=== PATIENT | male | born 1995 | race Caucasian/White ===

== ENCOUNTER 2019-10-16 21:32 | Emergency (ER) | payer BC ==
[2019-10-16 21:59] VITALS: BP 138/100; PULSE 80; TEMP 98.7; BMI 24.4
[2019-10-16] MEDS ORDERED: METOCLOPRAMIDE HCL INJECTION 10 MG/2 ML VIAL IVPB ONE (22:14)
[2019-10-16] MEDS ORDERED: METOCLOPRAMIDE HCL INJECTION 10 MG/2 ML VIAL ONE (22:22)
--- NOTE | 2019-10-17 00:32 | PDOC ---
Documentation entered by Jo Olvera SCRIBE, acting as scribe for Karon Mcgowan MD. Karon Mcgowan MD: This documentation has been prepared by the Willa brandon Nirvannie, SCRIBE, under my direction and personally reviewed by me in its entirety. I confirm that the documentation accurately reflects all work, treatment, procedures, and medical decision making performed by me. History of Present Illness - General Chief Complaint: Migraine Headache Stated Complaint: MIGRAINE Time Seen by Provider: 10/16/19 21:34 History Source: Patient Exam Limitations: No Limitations - History of Present Illness Initial Comments: 10/16/19 22:25 The patient is a 23 year old male with a significant past medical history of migraines who presents to the ED with 2 days of a constant, pressure-like headache worsened with movement of the head. As per patient, his headache is localized to the middle of the head and occipital region. He notes taking Panadol and Rizatriptan, without relief. Mother at bedside, notes buying a new blood pressure cuff and testing his pressure at which time they observed a reading of 157/106mmHg, prompting his arrival to the ED. As per patient's mother, he normally has a migraine trigger of sinusitis but, he denies any current nasal congestion. He denies any nausea, vomiting, photophobia, or neck pain. Allergies: NKDA Past History - Medical History Allergies/Adverse Reactions: Allergies Allergy/AdvReac Type Severity Reaction Status Date / Time No Known Allergies Allergy Verified 01/09/16 23:58 Home Medications: Ambulatory Orders No Home Medications 0 dose .ROUTE UTDICT 07/28/12 Cyclobenzaprine HCl [Flexeril -] 10 mg PO TID #21 tablet 01/10/16 Ibuprofen [Motrin -] 600 mg PO QID #28 tablet 01/10/16 Anemia: No Asthma: No Cancer: No Cardiac Disorders: No CVA: No COPD: No CHF: No DVT: No Dementia: No Diabetes: No Dialysis: No GI Disorders: No Disorders: No HTN: No Hypercholesterolemia: No Kidney Stones: No Liver Disease: No Psychiatric Problems: No Seizures: No Thyroid Disease: No Lung CA: No - Immunization History Immunization Up to Date: Yes - Psycho-Social/Smoking History Smoking Status: No Smoking History: Never smoked Have you smoked in the past 12 months: No Number of Cigarettes Smoked Daily: 0 Information on smoking cessation initiated: No - Substance Abuse Hx (Audit-C & DAST Scrn) How often the patient has a drink containing alcohol: Never Score: In Men: 4 or > Positive; In Women: 3 or > Positive: 0 Screen Result (Pos requires Nsg. Audit-10AR): Negative In the last yr the pt used illegal drug/Rx for NonMed reason: No Score: Yes response is considered Positive: 0 Screen Result (Positive result requires Nsg. DAST-10): Negative Review of Systems - Review of Systems Able to Perform ROS?: Yes Comments:: 10/16/19 22:26 CONSTITUTIONAL: Absent: fever, no chills, no fatigue EYES: Absent: visual changes ENT: Absent: ear pain, no sore throat CARDIOVASCULAR: Absent: chest pain, no palpitations RESPIRATORY: Absent: cough, no SOB GI: Absent: abdominal pain, no nausea, no vomiting, no constipation, no diarrhea GENITOURINARY: Absent: dysuria, no frequency, no hematuria MUSKULOSKELETAL: Absent: back pain, no arthralgia, no myalgia SKIN: Absent: rash NEURO: Present: headache All Other Systems: Reviewed and Negative *Physical Exam - Vital Signs Last Vital Signs Temp Pulse Resp BP Pulse Ox 98.7 F 80 18 138/100 100 10/16/19 21:55 10/16/19 21:55 10/16/19 21:55 10/16/19 21:55 10/16/19 21:55 - Physical Exam 10/16/19 22:33 GENERAL: The patient is awake, alert, and fully oriented, in no acute distress. HEAD:Normal with no signs of trauma. EYES: Pupils 3mm equal, round and reactive to light, extraocular movements intact, sclera anicteric, conjunctiva clear. EXTREMITIES: Normal range of motion, no edema. NEUROLOGICAL: NEURO: Mental status: The patient is alert and oriented x3. Cranial nerves: Cranial nerves II through XII are intact Motor: The upper extremities are 5 over 5 in all muscle groups. The lower extremities are 5 over 5 in all muscle groups. No pronator drift. Sensation: Sensation is intact to light touch throughout. Gait: Normal. Heel and toe walking are normal. Tandem gait is normal. PSYCH: Normal mood, normal affect. SKIN: Warm, Dry, normal turgor, no rashes or lesions noted. ED Progress Note - Progress Note Progress Note: As noted above, this 23-year-old man with a history of migraines but otherwise healthy, presents with 2-day history of headache in an area somewhat unusual for him (occipital region) and characterized by increased pain with movement. No associated symptoms of nausea/photophobia. Patient is taking acetaminophen and rizatriptan without relief. Exam as noted is without neurologic or other abnormalities. Metoclopramide 10 mg IV/Benadryl 25 mg IV administered. 1 L normal saline IV also given. After approximately 1 hour, patient felt significantly better (slightly lightheaded from Benadryl) with headache pain markedly decreased. He felt ready to go home and he will be discharged with recommendations to rest, avoid strenuous activity/dehydration over the next few days. He should return here if he has return of resistant headache pain. He should contact his PMD and arrange for follow-up Discharge - Discharge Information Problems reviewed: Yes Clinical Impression/Diagnosis: Headache Qualifiers: Headache type: tension-type Headache chronicity pattern: acute headache Intractability: not intractable Qualified Code(s): G44.209 - Tension-type h eadache, unspecified, not intractable Condition: Improved Disposition: HOME - Follow up/Referral - Patient Discharge Instructions Patient Printed Discharge Instructions: DI for Migraine Additional Instructions: Rest; drink plenty of fluids Avoid strenuous activity tomorrow Return to ER if headache is recurrent and persistent Contact your doctor and discuss tonight's ER visit; follow-up as arranged - Post Discharge Activity
== END 2019-10-16 23:44 | disposition home or self-care (01) ==
LOC: FER 21:32
PROC: 3E033GC Introduction of Other Therapeutic Substance into Peripheral Vein, Percutaneous Approach (ICD-10-PCS; principal; 2019-10-16)
PROC: 3E033GC Introduction of Other Therapeutic Substance into Peripheral Vein, Percutaneous Approach (ICD-10-PCS; 2019-10-16)
DX: G44.209 Tension-type headache, unspecified, not intractable (principal)
CPT/HCPCS: 99284-25

== ENCOUNTER 2023-02-08 07:43 | Emergency (ER) | payer BC ==
[2023-02-08 07:56] VITALS: RESP 16; TEMP 98.3; BMI 25.7
[2023-02-08] MEDS ORDERED: DIPHTH,PERTUSS(ACELL),TET 0.5 ML DISP.SYRIN IM ONE ×2 (07:56→07:59)
[2023-02-08 08:25] VITALS: BP 134/82; PULSE 74
== END 2023-02-08 08:36 | disposition home or self-care (01) ==
LOC: FER 07:43
PROC: 0HQFXZZ Repair Right Hand Skin, External Approach (ICD-10-PCS; principal; 2023-02-08)
PROC: 3E0234Z Introduction of Serum, Toxoid and Vaccine into Muscle, Percutaneous Approach (ICD-10-PCS; 2023-02-08)
DX: S61.411A Laceration without foreign body of right hand, initial encounter (principal); W26.8XXA Contact with other sharp object(s), not elsewhere classified, initial encounter
CPT/HCPCS: 82962; 90715; 99283-25

== ENCOUNTER 2023-02-15 07:06 | Emergency (ER) | payer BC ==
[2023-02-15 07:15] VITALS: BP 127/82; PULSE 56; RESP 16; TEMP 97.7; BMI 25.7
== END 2023-02-15 07:45 | disposition home or self-care (01) ==
LOC: FER 07:06
DX: Z48.02 Encounter for removal of sutures (principal)
CPT/HCPCS: 99281-25

== ENCOUNTER 2023-10-28 20:47 | Emergency (ER) | payer BC, OTHER ==
[2023-10-28] MEDS ORDERED: KETOROLAC TROMETHAMINE 60 MG/2 ML VIAL ONE (20:55)
[2023-10-28] MEDS: ONDANSETRON *ODT* 4 MG TABLET SL ONE (21:05)
[2023-10-28] MEDS: KETOROLAC TROMETHAMINE 30 MG/1 ML VIAL IM ONE (21:10)
[2023-10-28 21:15] VITALS: BP 131/93; PULSE 68; RESP 16; TEMP 97.5; BMI 25.8
== END 2023-10-28 21:21 | disposition home or self-care (01) ==
LOC: FER 20:47
PROC: 3E0333Z Introduction of Anti-inflammatory into Peripheral Vein, Percutaneous Approach (ICD-10-PCS; principal; 2023-10-28)
DX: R51.9 Headache, unspecified (principal); J02.9 Acute pharyngitis, unspecified; R11.10 Vomiting, unspecified; J06.9 Acute upper respiratory infection, unspecified; Z20.822 Contact with and (suspected) exposure to COVID-19
CPT/HCPCS: 0241U-QW; 99284-25; Q0162